=== PATIENT | female | born 1990 | race American Indian/Alaskan Native ===

== ENCOUNTER 2019-05-02 11:22 | Emergency (ER) | payer SELFPAY ==
[2019-05-02] MEDS ORDERED: ZOFRAN IV ONE (12:16)
[2019-05-02] MEDS ORDERED: SUBLIMAZE IV ONE ×3 (12:16→15:30)
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
[2019-05-02 12:57] LABS: Basophils % (Auto) 0.7 % (0.0-1.8); Eosinophils % (Auto) 0.4 % (0.0-4.3); Hematocrit 35.4 % (30.3-42.9); Hemoglobin 11.8 gm/dl (10.1-14.3); Lymphocytes # (Auto) 2.4 K/mm3 (1.2-5.4); Lymphocytes % (Auto) 37.7 % (13.4-35.0); Mean Corpuscular HGB Conc 33 % (30-34); Mean Corpuscular Volume 90 fl (79-97); Monocytes # (Auto) 0.5 K/mm3 (0.0-0.8); Monocytes % (Auto) 7.2 % (0.0-7.3); Platelet Count 313 K/mm3 (140-440); Red Blood Count 3.95 M/mm3 (3.65-5.03); Red Cell Distribution Width 15.6 % (13.2-15.2)
[2019-05-02 13:18] LABS: Creatine Kinase MB 1.7 ng/mL (0.0-4.0)
[2019-05-02 13:36] LABS: Alanine Aminotransferase 6 units/L (7-56); Albumin 4.1 g/dL (3.9-5); BUN/Creatinine Ratio 28; Blood Urea Nitrogen 11 mg/dL (7-17); Calcium 9.5 mg/dL (8.4-10.2); Hemolysis Index 3
[2019-05-02 14:02] LABS: Bacteria,Urine 4+ /HPF (Negative); Bilirubin,Urine NEG (Negative); Blood,Urine NEG (Negative); Color,Urine Amber (Yellow); Mucus,Urine FEW /HPF; RBC,Urine < 1.0 /HPF (0.0-6.0)
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
[2019-05-02] MEDS ORDERED: K-DUR PO ONE (14:39)
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
[2019-05-02] MEDS ORDERED: ZOFRAN ODT PO PRN (15:26)
[2019-05-02] MEDS ORDERED: MORPHINE IM PRN (15:30)
[2019-05-02] MEDS: PROzac PO SCH (15:35)
[2019-05-02 16:18] LABS: Amphetamine Screen,Urine PRESUMPTIVE NEGATIVE; Benzodiazepines Screen,Urine PRESUMPTIVE NEGATIVE; Cocaine Screen,Urine PRESUMPTIVE NEGATIVE; Methadone Screen,Urine PRESUMPTIVE NEGATIVE; Opiate Screen,Urine PRESUMPTIVE NEGATIVE
[2019-05-02 16:31] LABS: Cannabinoid Screen,Urine PRESUMPTIVE POSITIVE
[2019-05-02] MEDS ORDERED: DECADRON IV ONE (16:44)
[2019-05-02] MEDS ORDERED: BENADRYL IV ONE (16:44)
[2019-05-02] MEDS ORDERED: PEPCID IV ONE (16:44)
[2019-05-02] MEDS ORDERED: IBUPROFEN PO ONE (20:23)
[2019-05-03] MEDS ORDERED: TYLENOL PO ONE (03:46)
[2019-05-03 07:53] VITALS: BP 144/94
[2019-05-03] MEDS ORDERED: NEURONTIN PO SCH (08:31)
[2019-05-03] MEDS ORDERED: NEURONTIN ONE (08:44)
--- NOTE | 2019-05-03 10:13 | Progress Note ---
Subjective - Reason for Consult Consult date: 05/03/19 Reason for consult: Psychiatry Follow-up - Chief Complaint Chief complaint: 'I'm better" 29 y.o. AA female who presented to the ER for abdomen pain and suicidal thoughts. Today the patient was calm and cooperative during the assessment. She stated that she feel better and would like start therapy along with medication treatment. Per collateral information from the patient's Eli Saleem (at the bedside) who stated that her was "overwhelmed" yesterday. She denies any previous suicide attempts by the patient. She stated that she will be the patient's support system. The patient denies SI/HI's and AVH's. She denies any side effects from her medication. Mental Status Exam - Vital signs Last Vital Signs Temp 98.0 F 05/03/19 07:30 Pulse 75 05/03/19 07:30 Resp 16 05/03/19 09:02 BP 144/94 05/03/19 07:30 Pulse Ox 98 05/03/19 09:02 - Exam Narrative exam: MSE: Appearance: calm, cooperative Behavior: regular eye contact Speech: regular rate and tone Mood: "better" Affect: congruent to mood Thought Process: linear Thought Content: denies SI/HI's and AVH's Motor Activity: ambulatory Cognition: A/O x3 Insight: appropriate Judgment: appropriate Assessment and Plan Impression; MDD. PTSD. Unspecified Anxiety DO. Cannabis Use DO. Today the patient was calm and cooperative during the assessment, The patient is no threat to self. DDx: Substance Induced Mood DO Recommendation/Plan: Rescind 1013. Continue Prozac 20 mg PO daily for depression/PTSD/Anxiety and Vistaril 25 mg PO BID for anxiety. Discussed possible metabolic suicidality/medication induced vic with the patient reference Prozac, she verbalized understanding. Dispo: The patient can follow up with [facility] for outpatient psy services. Staffed with Dr Rena Lobo.
[2019-05-03] MEDS ORDERED: TORADOL ONE (11:32)
[2019-05-03] MEDS ORDERED: TORADOL IV ONE (11:33)
[2019-05-03] MEDS: PROzac PO SCH (12:46)
== END 2019-05-03 12:47 | disposition home or self-care (01) ==
LOC: ED 11:22
DX: N83.201 Unspecified ovarian cyst, right side (principal); R06.02 Shortness of breath; F41.9 Anxiety disorder, unspecified; R45.851 Suicidal ideations; F17.200 Nicotine dependence, unspecified, uncomplicated; Z88.6 Allergy status to analgesic agent
CPT/HCPCS: 36415; 71275; 74177; 80053; 80307; 81001; 82550; 82553; 83880; 84484; 84703; 85025; 96374; 96375; 96376; 99285; J1100; J1200; J1885; J2270; J2405; J3010; Q9967; 80320; G0480; Q0162